=== PATIENT | female | born 1945 | race Caucasian/White ===

== ENCOUNTER → 2022-04-04 | Outpatient (CLI) | payer MEDICARE | END | disposition home or self-care (01) | LOC: RAH 11:07 | PROVIDERS: ATTEND Internal Medicine | DX: R22.42 Localized swelling, mass and lump, left lower limb (principal) | CPT/HCPCS: 76882 ==

== ENCOUNTER → 2022-05-08 | Outpatient (CLI) | payer MEDICARE | END | disposition home or self-care (01) | LOC: RAH 09:38 | PROVIDERS: ATTEND Internal Medicine | DX: M16.11 Unilateral primary osteoarthritis, right hip (principal) | CPT/HCPCS: 73502 ==

== ENCOUNTER 2023-07-13 13:45 | Emergency (ER) | payer MEDICARE ==
[~2023-07-13] VITALS: Ht 165.1 cm; Wt 81.6 kg
[2023-07-13 14:17] LABS: APPEARANCE,URINE CLOUDY (CLEAR); BILIRUBIN,URINE NEGATIVE (NEGATIVE); COLOR,URINE YELLOW (YELLOW); GLUCOSE, URINE (UA) NEGATIVE (NEGATIVE); KETONES,URINE NEGATIVE (NEGATIVE); LEUKOCYTE ESTERASE ,URINE 500 Leu/uL (NEGATIVE); NITRATE,URINE NEGATIVE (NEGATIVE); OCCULT BLOOD,URINE NEGATIVE (NEGATIVE); PROTEIN,URINE 20 mg/dL (NEGATIVE); UROBILINOGEN,URINE 0.2 mg/dL (0.2-1.0)
[2023-07-13 14:17] LABS: BASOPHILS # (AUTO) 0.14 K/uL (0.00-0.20); BASOPHILS % (AUTO) 1.9 % (0.0-5.0); EOSINOPHILS # (AUTO) 0.21 K/uL (0.00-0.70); EOSINOPHILS % (AUTO) 2.9 % (0.0-8.0); HEMATOCRIT 38.1 % (36-48); IMMATURE GRANULOCYTE ABSOLUTE 0.03 K/uL (0-1); LYMPHOCYTES # (AUTO) 1.9 K/uL (1.0-4.8); LYMPHOCYTES % (AUTO) 25.8 % (21.0-51.0); MEAN CORPUSCULAR HEMOGLOBIN 25.3 pg (27.0-33.0); MEAN CORPUSCULAR HGB CONC 31.5 g/dL (32.0-36.0); MEAN CORPUSCULAR VOLUME 80.4 fL (79-99); MONOCYTES # (AUTO) 0.6 K/uL (0.1-1.0); MONOCYTES % (AUTO) 7.8 % (3.0-13.0); NEUTROPHILS # (AUTO) 4.5 K/uL (1.8-7.7); NEUTROPHILS % (AUTO) 61.2 % (40.0-77.0); PLATELET COUNT (AUTO) 307 K/uL (130-400); RED BLOOD CELL COUNT(AUTO) 4.74 MIL/uL (4.00-5.50); RED CELL DISTRIBUTION WIDTH 13.9 % (11.0-15.5); WHITE BLOOD COUNT (AUTO) 7.3 K/uL (4.8-10.8)
[2023-07-13 14:19] LABS: ADD UA MICROSCOPIC YES
[2023-07-13 14:27] LABS: CREATININE 0.9 mg/dL (0.5-1.5); POTASSIUM 3.7 mmol/L (3.5-5.1)
[2023-07-13 14:32] LABS: BACTERIA,URINE FEW /HPF (None Seen); MUCUS,URINE RARE LPF (None Seen); SQUAMOUS EPITHELIAL CELL,UR MOD /HPF (0-2); TRANSITIONAL EPI CELLS,URINE RARE /HPF (None Seen); WBC CLUMP FEW /HPF (0-1); WBC,URINE TNTC /HPF (0-1)
[2023-07-13 14:32] LABS: ALBUMIN 3.3 g/dL (3.5-5.0); BILIRUBIN,TOTAL 0.1 mg/dL (0.2-1.0); TOTAL PROTEIN, SERUM 6.8 g/dL (6.0-8.3)
[2023-07-13] MEDS: SUCRALFATE 1 GM TABLET PO SCH (15:56)
[2023-07-13] MEDS: HYOSCYAMINE SULFATE 0.125 MG TAB.SUBL SL ONE (15:56)
[2023-07-13 16:57] VITALS: BP 141/68; PULSE 70; RESP 18; O2SAT 98
[2023-07-13] MEDS ORDERED: HYOS0.124 SL (17:11)
[2023-07-13] MEDS ORDERED: SUCR1TAB28 PO (17:11)
[2023-07-13] MEDS ORDERED: MACR100 PO (17:11)
== END 2023-07-13 17:38 | disposition home or self-care (01) ==
LOC: EDH 13:45
DX: N39.0 Urinary tract infection, site not specified (principal); R07.89 Other chest pain; I10 Essential (primary) hypertension; E78.00 Pure hypercholesterolemia, unspecified; E03.9 Hypothyroidism, unspecified; Z90.49 Acquired absence of other specified parts of digestive tract; Z90.710 Acquired absence of both cervix and uterus; Z98.890 Other specified postprocedural states; Z88.8 Allergy status to other drugs, medicaments and biological substances
CPT/HCPCS: 36415; 71045; 80053; 81001; 83690; 83880; 84443; 84484; 85025; 87077; 87088; 87186; 93005

== ENCOUNTER 2023-08-17 16:41 | Emergency (ER) | payer OTHER ==
[~2023-08-17] VITALS: Ht 165.1 cm; Wt 81.6 kg
[~2023-08-17 16:41] MED LIST: HYOS0.124 SL; MACR100 PO; SUCR1TAB28 PO
[2023-08-17 17:18] LABS: BASOPHILS # (AUTO) 0.11 K/uL (0.00-0.20); BASOPHILS % (AUTO) 1.5 % (0.0-5.0); EOSINOPHILS # (AUTO) 0.22 K/uL (0.00-0.70); IMMATURE GRANULOCYTE ABSOLUTE 0.01 K/uL (0-1); LYMPHOCYTES # (AUTO) 2.4 K/uL (1.0-4.8); MEAN CORPUSCULAR HEMOGLOBIN 24.7 pg (27.0-33.0); MEAN CORPUSCULAR HGB CONC 31.7 g/dL (32.0-36.0); MEAN CORPUSCULAR VOLUME 77.9 fL (79-99); MONOCYTES # (AUTO) 0.7 K/uL (0.1-1.0); MONOCYTES % (AUTO) 9.5 % (3.0-13.0); NEUTROPHILS # (AUTO) 3.8 K/uL (1.8-7.7); NEUTROPHILS % (AUTO) 52.9 % (40.0-77.0); PLATELET COUNT (AUTO) 299 K/uL (130-400); RED BLOOD CELL COUNT(AUTO) 4.62 MIL/uL (4.00-5.50); RED CELL DISTRIBUTION WIDTH 14.2 % (11.0-15.5); WHITE BLOOD COUNT (AUTO) 7.3 K/uL (4.8-10.8)
[2023-08-17 17:21] LABS: POTASSIUM 4.3 mmol/L (3.5-5.1)
[2023-08-17 17:23] LABS: INR <= 0.93 (0.85-1.15); PROTHROMBIN TIME 9.4 SEC (9.6-11.6)
[2023-08-17 17:24] LABS: PARTIAL THROMBOPLASTIN TIME 26.2 SEC (26.3-35.5)
[2023-08-17] MEDS ORDERED: IOHEXOL 350 MG/ML 100ML INFUS..BTL IV ONE (17:31)
[2023-08-17 17:37] LABS: MAGNESIUM 2.2 mg/dL (1.80-2.40)
[2023-08-17 17:38] LABS: THYROID STIMULATING HORMONE 4.18 uIU/mL (0.36-3.74)
[2023-08-17 18:38] LABS: APPEARANCE,URINE CLEAR (CLEAR); BILIRUBIN,URINE NEGATIVE (NEGATIVE); COLOR,URINE COLORLESS (YELLOW); GLUCOSE, URINE (UA) NEGATIVE (NEGATIVE); KETONES,URINE NEGATIVE (NEGATIVE); LEUKOCYTE ESTERASE ,URINE NEGATIVE Leu/uL (NEGATIVE); NITRATE,URINE NEGATIVE (NEGATIVE); OCCULT BLOOD,URINE NEGATIVE (NEGATIVE); PH,URINE 5.5 (5.0-8.0); PROTEIN,URINE NEGATIVE (NEGATIVE); UROBILINOGEN,URINE 0.2 mg/dL (0.2-1.0)
[2023-08-17 18:39] LABS: ADD UA MICROSCOPIC NO
[2023-08-17] MEDS: NITROGLYCERIN 1GM OINT 1 INCH/1GM TD ONE (18:45)
[2023-08-17] MEDS: KETOROLAC 30MG VIAL (30MG/ML) IVP ONE (18:46)
[2023-08-17] MEDS: FAMOTIDINE 20MG VIAL IV ONE (18:46)
[2023-08-17] MEDS: METOCLOPRAMIDE 10 MG/2 ML VIAL IM ONE (18:46)
[2023-08-17] MEDS: METOCLOPRAMIDE 10 MG/2 ML VIAL IVP STA (18:53)
[2023-08-17 22:07] LABS: ALANINE AMINOTRANSFERASE 29 U/L (12-78); ALBUMIN 3.5 g/dL (3.5-5.0); ASPARTATE AMINOTRANSFERASE 22 U/L (10-37); BILIRUBIN,DIRECT < 0.1 mg/dL (0.0-0.3); BILIRUBIN,TOTAL 0.1 mg/dL (0.2-1.0); TOTAL PROTEIN, SERUM 6.8 g/dL (6.0-8.3)
[2023-08-18 03:00] VITALS: BP 148/72; PULSE 72; RESP 16; O2SAT 98
== END 2023-08-18 03:19 | disposition home or self-care (01) ==
LOC: EDH 16:41
DX: G43.109 Migraine with aura, not intractable, without status migrainosus (principal); G44.89 Other headache syndrome; E78.00 Pure hypercholesterolemia, unspecified; G45.9 Transient cerebral ischemic attack, unspecified; E03.9 Hypothyroidism, unspecified; I10 Essential (primary) hypertension; Z88.1 Allergy status to other antibiotic agents; Z88.6 Allergy status to analgesic agent; Z90.49 Acquired absence of other specified parts of digestive tract; Z90.710 Acquired absence of both cervix and uterus
CPT/HCPCS: 99285; 70450; 93880; 70551; 96374; 96375; 84443; 80076; 83735; 84484; 80048; 85025; 85610; 85730; 81003; 36415; 70496; 70498; 93005; J3490; J1885; J2765; Q9967

== ENCOUNTER → 2023-08-27 | Outpatient (CLI) | payer OTHER | END | disposition home or self-care (01) | LOC: RAH 10:55 | PROVIDERS: ATTEND Internal Medicine | DX: M47.816 Spondylosis without myelopathy or radiculopathy, lumbar region (principal) | CPT/HCPCS: 72148 ==

== ENCOUNTER → 2024-03-29 | Outpatient (CLI) | payer OTHER | END | disposition home or self-care (01) | LOC: RAH 08:58 | PROVIDERS: ATTEND Internal Medicine Gastroenterology | DX: K44.9 Diaphragmatic hernia without obstruction or gangrene (principal); K22.2 Esophageal obstruction | CPT/HCPCS: 74220 ==

== ENCOUNTER → 2024-05-21 | Outpatient (CLI) | payer OTHER ==
--- NOTE | 2024-05-21 14:01 | HMCIMG ---
ABD COMP DECUB/ERECT VWS HISTORY: Chronic idiopathic constipation COMPARISON: None FINDINGS: Two views of the abdomen were obtained. A nonspecific bowel gas pattern is seen. Fecal material is seen in the colon. There is no evidence of free intraperitoneal air. There is constipation. IMPRESSION: 1. A nonspecific bowel gas pattern.
== END | disposition home or self-care (01) ==
LOC: RAH 13:24
PROVIDERS: ATTEND Internal Medicine Gastroenterology
DX: K59.04 Chronic idiopathic constipation (principal)
CPT/HCPCS: 74021